=== PATIENT | female | born 1965 | race American Indian/Alaskan Native ===

== ENCOUNTER 2017-06-05 22:03 | Observation (INO) | payer BC ==
--- NOTE | 2017-06-05 22:47 | C.PDOC ---
History Of Present Illness 51 year old female presents to the ED c/o pain to her left upper back radiating to her left upper chest and arm that started 4 hours ago. Patient reports she was at the grocery store when the symptoms started. On arrival home pt states that pain left chest pain increased while climbing the stairs at her house and felt SOB. Patient denies SOB now, denies heavy lifting, trauma, injury, fall, prolonged recent travel, recent immobility due to recent illness, leg cast, no known coagulopathy state. Pt reports family h/o of heart diz- mother and 2 sisters with " valvular disease" Time Seen by Provider: 06/05/17 22:22 Chief Complaint (Nursing): Back Pain History Per: Patient History/Exam Limitations: no limitations Onset/Duration Of Symptoms: Hrs Current Symptoms Are (Timing): Still Present Previous Symptoms: Back Pain Associated Symptoms: None Recent travel outside of the [place]: No Additional History Per: Patient Past Medical History Reviewed: Historical Data, Nursing Documentation, Vital Signs Vital Signs: Last Vital Signs Temp 98.2 F 06/05/17 22:05 Pulse 84 06/05/17 22:05 Resp 14 06/05/17 22:05 BP 144/88 06/05/17 22:05 Pulse Ox 98 06/05/17 23:42 - Medical History PMH: No Chronic Diseases Surgical History: No Surg Hx Family History: States: Unknown Family Hx - Social History Hx Alcohol Use: Yes Hx Substance Use: No - Immunization History Hx Tetanus Toxoid Vaccination: No Hx Influenza Vaccination: No Hx Pneumococcal Vaccination: No Review Of Systems Constitutional: Negative for: Fever, Chills Cardiovascular: Positive for: Chest Pain. Negative for: Palpitations Respiratory: Positive for: SOB with Excertion. Negative for: Cough Gastrointestinal: Negative for: Nausea, Vomiting, Abdominal Pain Musculoskeletal: Positive for: Back Pain Skin: Negative for: Rash Neurological: Negative for: Weakness, Numbness Physical Exam - Physical Exam Appears: Non-toxic, No Acute Distress Skin: Normal Color, Warm, Dry Head: Atraumatic, Normacephalic Eye(s): bilateral: Normal Inspection Nose: No Discharge Oral Mucosa: Moist Neck: Normal ROM, Supple Chest: Symmetrical, No Tenderness Cardiovascular: Rhythm Regular, No Murmur Respiratory: Normal Breath Sounds, No Rales, No Rhonchi, No Wheezing Gastrointestinal/Abdominal: Soft, No Tenderness, No Guarding, No Rebound Back: No Paraspinal Tenderness Extremity: Normal ROM, No Tenderness, No Swelling Neurological/Psych: Oriented x3, Normal Motor, Normal Sensation Gait: Steady ED Course And Treatment - Laboratory Results Result Diagrams: 06/05/17 22:46 06/05/17 22:46 ECG: Interpreted By Me, Viewed By Me (and Dr Chavarria) ECG Rhythm: Sinus Bradycardia (57), Nonspecific Changes (inverted T waves in V4- V6) O2 Sat by Pulse Oximetry: 98 (On RA) Pulse Ox Interpretation: Normal - Radiology CXR: Interpreted by Me, Viewed By Me CXR Interpretation: Yes: No Acute Disease, Mediastinum (normal). No: Cardiomegaly Progress Note: Plan: - Labs. - EKG. - CXR. - Aspirin 81 mg PO. Labs, EKG and CXR reviewed - Physician Consult Information Physician Contacted: Harjit Choudhary Outcome Of Conversation: agreed to place pt on Tele OBS Medical Decision Making Medical Decision Makiny/o female with Left sided chest pain and back pain worse on exertion and brief episode of SOB- EKG with nonspecfic changes, Labs and CXR wnl Pt will be placed on tele obs for serial troponin Disposition - Disposition Disposition: HOSPITALIZED Disposition Time: 00:15 Condition: STABLE - Clinical Impression Clinical Impression: Chest pain due to CAD - PA / CLINICAL SERVICES MANAGER / Resident Statement MD/DO has reviewed & agrees with the documentation as recorded. - Scribe Statement The provider has reviewed the documentation as recorded by the Scribe Hung Weller All medical record entries made by the Scribe were at my direction and personally dictated by me. I have reviewed the chart and agree that the record accurately reflects my personal performance of the history, physical exam, medical decision making, and the department course for this patient. I have also personally directed, reviewed, and agree with the discharge instructions and disposition.
[2017-06-05 22:50] LABS: BASO # 0.1 K/uL (0.0-0.2); BASO % 0.9 % (0.0-2.0); EOS # 0.2 K/uL (0.0-0.7); EOS % 2.3 % (0.0-4.0); HEMOGLOBIN 11.7 g/dL (11.0-16.0); LYMPH # 2.7 K/uL (1.0-4.3); LYMPH % 34.1 % (20.0-40.0); MEAN CELL VOLUME 89.3 fL (81.0-99.0); MEAN CORPUSCULAR HEMOGLOBIN 29.2 pg (27.0-31.0); MEAN CORPUSCULAR HGB CONC 32.7 g/dL (33.0-37.0); MEAN PLATELET VOLUME 9.1 fL (7.2-11.7); MONO # 0.6 K/uL (0.0-0.8); MONO % 7.4 % (0.0-10.0); NEUT # 4.3 K/uL (1.8-7.0); NEUT % 55.3 % (50.0-75.0); RBC 4.02 Mil/uL (3.80-5.20); RED CELL DISTRIBUTION WIDTH 13.7 % (11.5-14.5); WHITE BLOOD COUNT 7.8 K/uL (4.8-10.8)
[2017-06-05 23:03] LABS: ALBUMIN 3.9 g/dL (3.5-5.0); CALCIUM 8.8 mg/dl (8.6-10.4); GFR AFRICAN-AMERICAN > 60; GFR NON-AFRICAN AMERICAN > 60
[2017-06-05 23:04] LABS: ALT/SGPT 48 U/L (9-52); AST/SGOT 47 U/L (14-36); BLOOD UREA NITROGEN 10 mg/dL (7-17)
--- NOTE | 2017-06-06 01:07 | CP.PCM.HP ---
<Andrew Craig - Last Filed: 06/06/17 03:40> History of Present Illness - History of Present Illness History of Present Illness: CC: Chest pain 51 year of female with past medical history of genital herpes presents to the ED today complaining of chest pain. Patients reports her chest pain started this afternoon around 7pm when she was grocery shopping. Patient states the pain is located at left sternal border radiates to her left arm. Patient's pain is not reproducible with upper extremity motions. No prior history of the same. Patient took 2 over the counter Aleve which alleviated her chest pain. Patient also report to have shortness of breath after climbing 2 flights of stairs to her home, but it resolved shortly after resting. Patient decided to come to the ED tonight because patient is worried that she might have experienced a heart attack. Patient denies fever, chills, diaphoresis, headache, vision changes, nausea, vomiting, or diarrhea. PMD: Dr. Danitza Alejandro PMHx: Childhood asthma, genital herpes PSHx: myomectomy 2008 Allergy: none Social Hx: social alcohol, denies tobacco or other drug use Family Hx: mother CHF and valve replacement Home meds: valacyclovir prn for herpes Present on Admission - Present on Admission Any Indicators Present on Admission: No Review of Systems - Constitutional Constitutional: As Per HPI. absent: Chills, Fatigue, Fever - EENT Eyes: As Per HPI. absent: Blind Spots, Blurred Vision, Decreased Night Vision Ears: As Per HPI Nose/Mouth/Throat: As Per HPI. absent: Epistaxis, Nasal Obstruction, Nasal Trauma - Breasts Breasts: As Per HPI - Cardiovascular Cardiovascular: As Per HPI, Chest Pain, Chest Pain at Rest, Chest Pain with Activity, Dyspnea. absent: Diaphoresis - Respiratory Respiratory: As Per HPI, Dyspnea. absent: Cough, Wheezing - Gastrointestinal Gastrointestinal: As Per HPI. absent: Abdominal Pain, Change in Bowel Habits, Diarrhea, Nausea, Vomiting - Genitourinary Genitourinary: As Per HPI. absent: Dysuria, Flank Pain - Reproductive: Female Reproductive:Female: As Per HPI - Menstruation Menstruation: As Per HPI - Musculoskeletal Musculoskeletal: As Per HPI. absent: Abnormal Gait, Joint Swelling - Integumentary Integumentary: As Per HPI. absent: Acne, Erythema - Neurological Neurological: As Per HPI. absent: Dizziness, Syncope, Tremor - Psychiatric Psychiatric: As Per HPI. absent: Anxiety, Depression - Endocrine Endocrine: As Per HPI. absent: Change in Body Appearance - Hematologic/Lymphatic Hematologic: As Per HPI Past Patient History - Past Social History Smoking Status: Never Smoked - GENITOURINARY/GYNECOLOGICAL Other/Comment: genital herpes - PSYCHIATRIC Hx Substance Use: No - SURGICAL HISTORY Other/Comment: myomectomy Meds Allergies/Adverse Reactions: Allergies Allergy/AdvReac Type Severity Reaction Status Date / Time No Known Allergies Allergy Unverified 06/05/17 22:10 Physical Exam - Constitutional Appears: Non-toxic, No Acute Distress - Head Exam Head Exam: ATRAUMATIC, NORMOCEPHALIC - Eye Exam Eye Exam: EOMI, Normal appearance Pupil Exam: NORMAL ACCOMODATION - ENT Exam ENT Exam: Mucous Membranes Moist - Neck Exam Neck exam: Positive for: Normal Inspection - Respiratory Exam Respiratory Exam: Clear to Auscultation Bilateral, NORMAL BREATHING PATTERN. absent: Rales, Rhonchi, Wheezes, Respiratory Distress - Cardiovascular Exam Cardiovascular Exam: REGULAR RHYTHM, +S1, +S2 - GI/Abdominal Exam GI & Abdominal Exam: Normal Bowel Sounds, Soft. absent: Tenderness - Rectal Exam Rectal Exam: NORMAL INSPECTION - Extremities Exam Extremities exam: Positive for: normal inspection, pedal pulses present. Negative for: tenderness - Neurological Exam Neurological exam: Alert, Oriented x3 - Psychiatric Exam Psychiatric exam: Normal Affect, Normal Mood - Skin Skin Exam: Dry, Warm Results - Vital Signs Recent Vital Signs: Last Vital Signs Temp 98.2 F 06/05/17 22:05 Pulse 84 06/05/17 22:05 Resp 14 06/05/17 22:05 BP 144/88 06/05/17 22:05 Pulse Ox 98 06/06/17 00:37 - Labs Result Diagrams: 06/05/17 22:46 06/05/17 22:46 Labs: Laboratory Results - last 24 hr 06/05/17 06/05/17 22:46 22:46 WBC 7.8 RBC 4.02 Hgb 11.7 Hct 35.9 MCV 89.3 MCH 29.2 MCHC 32.7 L RDW 13.7 Plt Count 305 MPV 9.1 Neut % (Auto) 55.3 Lymph % (Auto) 34.1 [place] % (Auto) 7.4 Eos % (Auto) 2.3 Baso % (Auto) 0.9 Neut # (Auto) 4.3 Lymph # (Auto) 2.7 [place] # (Auto) 0.6 Eos # (Auto) 0.2 Baso # (Auto) 0.1 Sodium 141 Potassium 3.6 Chloride 100 Carbon Dioxide 28 Anion Gap 16 BUN 10 Creatinine 0.7 Est GFR ( Amer) > 60 Est GFR (Non-Af Amer) > 60 Random Glucose 148 H Calcium 8.8 Total Bilirubin 0.6 AST 47 H ALT 48 Alkaline Phosphatase 84 Troponin I < 0.0120 Total Protein 7.8 Albumin 3.9 Globulin 3.9 Albumin/Globulin Ratio 1.0 Assessment & Plan - Assessment and Plan (Free Text) Assessment: Chest pain r/o ACS -EKG sinus tiffanie @57bpm, T wave inversion at V4 to V6, no previous EKG -Troponin negative, repeats pending -CXR shows no active disease, no cardiomegaly -Follow up echo, am EKG -Aspirin 81mg -Crestor 5mg Prophylactic measures -Protonix -Lovenox Case discussed with attending physician <Harjit Choudhary - Last Filed: 06/06/17 05:35> Results - Vital Signs Recent Vital Signs: Last Vital Signs Temp 97.9 F 06/06/17 02:07 Pulse 67 06/06/17 04:39 Resp 16 06/06/17 04:39 BP 104/49 L 06/06/17 02:07 Pulse Ox 95 06/06/17 04:39 - Labs Result Diagrams: 06/05/17 22:46 06/05/17 22:46 Labs: Laboratory Results - last 24 hr 06/05/17 06/05/17 22:46 22:46 WBC 7.8 RBC 4.02 Hgb 11.7 Hct 35.9 MCV 89.3 MCH 29.2 MCHC 32.7 L RDW 13.7 Plt Count 305 MPV 9.1 Neut % (Auto) 55.3 Lymph % (Auto) 34.1 [place] % (Auto) 7.4 Eos % (Auto) 2.3 Baso % (Auto) 0.9 Neut # (Auto) 4.3 Lymph # (Auto) 2.7 [place] # (Auto) 0.6 Eos # (Auto) 0.2 Baso # (Auto) 0.1 Sodium 141 Potassium 3.6 Chloride 100 Carbon Dioxide 28 Anion Gap 16 BUN 10 Creatinine 0.7 Est GFR ( Amer) > 60 Est GFR (Non-Af Amer) > 60 Random Glucose 148 H Calcium 8.8 Total Bilirubin 0.6 AST 47 H ALT 48 Alkaline Phosphatase 84 Troponin I < 0.0120 Total Protein 7.8 Albumin 3.9 Globulin 3.9 Albumin/Globulin Ratio 1.0 Assessment & Plan - Date & Time Date: 06/06/17 (I have seen and examined the patient. I agree with the findings and plan of care as documented by Dr. Craig. Patient with chest pain. ROMIx3 with EKG. 2D Echo. Aspirin and Statin. Monitor for acute changes.) Time: 05:34 Attending/Attestation - Attestation I have personally seen and examined this patient.: Yes I have fully participated in the care of the patient.: Yes I have reviewed all pertinent clinical information: Yes
[2017-06-06 05:50] LABS: BASO # 0.1 K/uL (0.0-0.2); BASO % 0.9 % (0.0-2.0); EOS # 0.2 K/uL (0.0-0.7); EOS % 2.5 % (0.0-4.0); HEMOGLOBIN 11.8 g/dL (11.0-16.0); LYMPH # 2.8 K/uL (1.0-4.3); LYMPH % 39.3 % (20.0-40.0); MEAN CELL VOLUME 89.2 fL (81.0-99.0); MEAN CORPUSCULAR HGB CONC 32.6 g/dL (33.0-37.0); MEAN PLATELET VOLUME 8.9 fL (7.2-11.7); MONO # 0.5 K/uL (0.0-0.8); MONO % 7.7 % (0.0-10.0); NEUT # 3.5 K/uL (1.8-7.0); NEUT % 49.6 % (50.0-75.0); NRBC % 0.1 % (0.0-2.0); RBC 4.05 Mil/uL (3.80-5.20); RED CELL DISTRIBUTION WIDTH 13.5 % (11.5-14.5); WHITE BLOOD COUNT 7.1 K/uL (4.8-10.8)
[2017-06-06 06:11] LABS: ALB/GLOB RATIO 1.1 (1.0-2.1); ALBUMIN 3.6 g/dL (3.5-5.0); ALT/SGPT 43 U/L (9-52); AST/SGOT 40 U/L (14-36); BLOOD UREA NITROGEN 8 mg/dL (7-17); CALCIUM 9.1 mg/dl (8.6-10.4); GFR AFRICAN-AMERICAN > 60; GFR NON-AFRICAN AMERICAN > 60
[2017-06-06 06:24] LABS: CK-MB < 0.22 ng/mL (0.0-3.38)
[2017-06-06 07:26] VITALS: O2SAT 99
--- NOTE | 2017-06-06 08:43 | RAD ---
HISTORY: chest pain COMPARISON: No prior. TECHNIQUE: Chest PA and lateral FINDINGS: LUNGS: No active pulmonary disease. PLEURA: No significant pleural effusion identified. No pneumothorax apparent. CARDIOVASCULAR: Normal. OSSEOUS STRUCTURES: No significant abnormalities. VISUALIZED UPPER ABDOMEN: Normal. OTHER FINDINGS: None. IMPRESSION: No active disease.
[2017-06-06] MEDS ORDERED: Enoxaparin 40 mg Syringe SC SCH (10:00)
[2017-06-06] MEDS ORDERED: Pantoprazole 40 mg EC Tab PO SCH (10:00)
[2017-06-06] MEDS ORDERED: Potassium Chloride 20 mEq ER Tab PO ONE (10:42)
[2017-06-06 11:47] LABS: CK-MB < 0.22 ng/mL (0.0-3.38)
[2017-06-06 14:18] VITALS: BP 133/80; PULSE 60; RESP 18; TEMP 98
--- NOTE | 2017-06-06 14:18 | CP.PCM.DIS ---
<Jason Scott - Last Filed: 06/06/17 16:50> Provider - Provider Date of Admission: 06/05/17 23:50 Attending physician: Harjit Choudhary MD Consults: none Time Spent in preparation of Discharge (in minutes): 45 Diagnosis - Discharge Diagnosis (1) Chest pain Status: Acute Hospital Course - Lab Results Lab Results: Most Recent Lab Values WBC 7.1 K/uL (4.8-10.8) 06/06/17 05:43 RBC 4.05 Mil/uL (3.80-5.20) 06/06/17 05:43 Hgb 11.8 g/dL (11.0-16.0) 06/06/17 05:43 Hct 36.1 % (34.0-47.0) 06/06/17 05:43 MCV 89.2 fL (81.0-99.0) 06/06/17 05:43 MCH 29.0 pg (27.0-31.0) 06/06/17 05:43 MCHC 32.6 g/dL (33.0-37.0) L 06/06/17 05:43 RDW 13.5 % (11.5-14.5) 06/06/17 05:43 Plt Count 294 K/uL (130-400) 06/06/17 05:43 MPV 8.9 fL (7.2-11.7) 06/06/17 05:43 Neut % (Auto) 49.6 % (50.0-75.0) L 06/06/17 05:43 Lymph % (Auto) 39.3 % (20.0-40.0) 06/06/17 05:43 [place] % (Auto) 7.7 % (0.0-10.0) 06/06/17 05:43 Eos % (Auto) 2.5 % (0.0-4.0) 06/06/17 05:43 Baso % (Auto) 0.9 % (0.0-2.0) 06/06/17 05:43 Neut # (Auto) 3.5 K/uL (1.8-7.0) 06/06/17 05:43 Lymph # (Auto) 2.8 K/uL (1.0-4.3) 06/06/17 05:43 [place] # (Auto) 0.5 K/uL (0.0-0.8) 06/06/17 05:43 Eos # (Auto) 0.2 K/uL (0.0-0.7) 06/06/17 05:43 Baso # (Auto) 0.1 K/uL (0.0-0.2) 06/06/17 05:43 Sodium 142 mmol/L (132-148) 06/06/17 05:43 Potassium 3.5 mmol/L (3.6-5.2) L 06/06/17 05:43 Chloride 103 mmol/L (98-107) 06/06/17 05:43 Carbon Dioxide 28 mmol/L (22-30) 06/06/17 05:43 Anion Gap 15 (10-20) 06/06/17 05:43 BUN 8 mg/dL (7-17) 06/06/17 05:43 Creatinine 0.7 mg/dL (0.7-1.2) 06/06/17 05:43 Est GFR ( Amer) > 60 06/06/17 05:43 Est GFR (Non-Af Amer) > 60 06/06/17 05:43 Random Glucose 107 mg/dL (65-105) H 06/06/17 05:43 Calcium 9.1 mg/dl (8.6-10.4) 06/06/17 05:43 Total Bilirubin 0.4 mg/dL (0.2-1.3) 06/06/17 05:43 AST 40 U/L (14-36) H 06/06/17 05:43 ALT 43 U/L (9-52) 06/06/17 05:43 Alkaline Phosphatase 94 U/L (38-126) 06/06/17 05:43 Total Creatine Kinase 48 U/L (30-135) 06/06/17 11:06 CK-MB (Mass) < 0.22 ng/mL (0.0-3.38) 06/06/17 11:06 Troponin I < 0.0120 ng/mL (0.00-0.120) 06/06/17 11:06 Total Protein 6.9 g/dL (6.3-8.3) 06/06/17 05:43 Albumin 3.6 g/dL (3.5-5.0) 06/06/17 05:43 Globulin 3.3 gm/dL (2.2-3.9) 06/06/17 05:43 Albumin/Globulin Ratio 1.1 (1.0-2.1) 06/06/17 05:43 - Hospital Course Hospital Course: 51 year of female with past medical history of genital herpes presents to the ED today complaining of chest pain. Patients reports her chest pain started this afternoon around 7pm when she was grocery shopping. Patient states the pain is located at left sternal border radiates to her left arm. Patient's pain is not reproducible with upper extremity motions. No prior history of the same. Patient took 2 over the counter Aleve which alleviated her chest pain. Patient also report to have shortness of breath after climbing 2 flights of stairs to her home, but it resolved shortly after resting. Patient decided to come to the ED tonight because patient is worried that she might have experienced a heart attack. Patient denies fever, chills, diaphoresis, headache, vision changes, nausea, vomiting, or diarrhea. Hospital course: patient had 3 troponins that were all negaive as well as 3 EKGs that did not show any ST changes or arryythmogenic intervals. Patient was discharged with instructions to make an appointment with Dtr. Jacobson for out patient stress test as she has a family history of early [place]. The rest of her stay was without complications. Discharge Exam - Head Exam Head Exam: ATRAUMATIC, NORMOCEPHALIC - Eye Exam Eye Exam: EOMI, Normal appearance, PERRL Pupil Exam: NORMAL ACCOMODATION, PERRL - Respiratory Exam Respiratory Exam: Clear to PA & Lateral, UNREMARKABLE - Cardiovascular Exam Cardiovascular Exam: REGULAR RHYTHM - GI/Abdominal Exam GI & Abdominal Exam: Normal Bowel Sounds - Neurological Exam Neurological exam: Alert, CN II-XII Intact, Normal Gait, Oriented x3, Reflexes Normal - Psychiatric Exam Psychiatric exam: Normal Affect, Normal Mood - Skin Skin Exam: Dry, Intact, Normal Color, Warm Discharge Plan - Discharge Medications Prescriptions: Pantoprazole [Protonix EC Tab] 40 mg PO DAILY #30 ect - Follow Up Plan Condition: STABLE Disposition: HOME/ ROUTINE Additional Instructions: 1. Please follow up with your primary care provider, Dr. Alejandro, in 7-10 days. 2. Please follow up with Dr. Jason Jacobson in his office in 7-10 days. Please call to make an appointment. I have attached his office information. 3. Please take the following medications: -Protonix 40mg by mouth daily with breakfast for 1 month 4. Please walk after meals for 15-20 minutes 5. Please do not lay down for 1-2 hours after eating. 6. Please return to the ED if symptoms return. <Jude Alejandro - Last Filed: 06/06/17 20:00> Provider - Provider Date of Admission: 06/05/17 23:50 Attending physician: Harjit Choudhary MD Time Spent in preparation of Discharge (in minutes): 40 Hospital Course - Lab Results Lab Results: Most Recent Lab Values WBC 7.1 K/uL (4.8-10.8) 06/06/17 05:43 RBC 4.05 Mil/uL (3.80-5.20) 06/06/17 05:43 Hgb 11.8 g/dL (11.0-16.0) 06/06/17 05:43 Hct 36.1 % (34.0-47.0) 06/06/17 05:43 MCV 89.2 fL (81.0-99.0) 06/06/17 05:43 MCH 29.0 pg (27.0-31.0) 06/06/17 05:43 MCHC 32.6 g/dL (33.0-37.0) L 06/06/17 05:43 RDW 13.5 % (11.5-14.5) 06/06/17 05:43 Plt Count 294 K/uL (130-400) 06/06/17 05:43 MPV 8.9 fL (7.2-11.7) 06/06/17 05:43 Neut % (Auto) 49.6 % (50.0-75.0) L 06/06/17 05:43 Lymph % (Auto) 39.3 % (20.0-40.0) 06/06/17 05:43 [place] % (Auto) 7.7 % (0.0-10.0) 06/06/17 05:43 Eos % (Auto) 2.5 % (0.0-4.0) 06/06/17 05:43 Baso % (Auto) 0.9 % (0.0-2.0) 06/06/17 05:43 Neut # (Auto) 3.5 K/uL (1.8-7.0) 06/06/17 05:43 Lymph # (Auto) 2.8 K/uL (1.0-4.3) 06/06/17 05:43 [place] # (Auto) 0.5 K/uL (0.0-0.8) 06/06/17 05:43 Eos # (Auto) 0.2 K/uL (0.0-0.7) 06/06/17 05:43 Baso # (Auto) 0.1 K/uL (0.0-0.2) 06/06/17 05:43 Sodium 142 mmol/L (132-148) 06/06/17 05:43 Potassium 3.5 mmol/L (3.6-5.2) L 06/06/17 05:43 Chloride 103 mmol/L (98-107) 06/06/17 05:43 Carbon Dioxide 28 mmol/L (22-30) 06/06/17 05:43 Anion Gap 15 (10-20) 06/06/17 05:43 BUN 8 mg/dL (7-17) 06/06/17 05:43 Creatinine 0.7 mg/dL (0.7-1.2) 06/06/17 05:43 Est GFR ( Amer) > 60 06/06/17 05:43 Est GFR (Non-Af Amer) > 60 06/06/17 05:43 Random Glucose 107 mg/dL (65-105) H 06/06/17 05:43 Calcium 9.1 mg/dl (8.6-10.4) 06/06/17 05:43 Total Bilirubin 0.4 mg/dL (0.2-1.3) 06/06/17 05:43 AST 40 U/L (14-36) H 06/06/17 05:43 ALT 43 U/L (9-52) 06/06/17 05:43 Alkaline Phosphatase 94 U/L (38-126) 06/06/17 05:43 Total Creatine Kinase 48 U/L (30-135) 06/06/17 11:06 CK-MB (Mass) < 0.22 ng/mL (0.0-3.38) 06/06/17 11:06 Troponin I < 0.0120 ng/mL (0.00-0.120) 06/06/17 11:06 Total Protein 6.9 g/dL (6.3-8.3) 06/06/17 05:43 Albumin 3.6 g/dL (3.5-5.0) 06/06/17 05:43 Globulin 3.3 gm/dL (2.2-3.9) 06/06/17 05:43 Albumin/Globulin Ratio 1.1 (1.0-2.1) 06/06/17 05:43 Attending/Attestation - Attestation I have personally seen and examined this patient.: Yes I have fully participated in the care of the patient.: Yes I have reviewed all pertinent clinical information, including history, physical exam and plan: Yes Notes (Text): 06/06/17 19:58 Patient was seen and examined in the ER BED #2 shortly after resident. Exam, assessment and plan and discharge instructions were gone over with the resident. Discharge instructions were also thoroughly gone over with the patient and she expressed understanding. Jude Alejandro D.O.
--- NOTE | 2017-06-07 01:57 | CARD ---
APPROVED REPORT EKG Measurement Heart [id number] <Conclusion> Sinus bradycardia Incomplete right bundle branch block Septal infarct, age undetermined consider lateral ischemia Abnormal ECG
--- NOTE | 2017-06-07 12:34 | CARD ---
APPROVED REPORT EKG Measurement Heart [id number] <Conclusion> Sinus bradycardia ST & T wave abnormality, consider lateral ischemia Abnormal ECG
== END 2017-06-06 14:30 | disposition home or self-care (01) ==
LOC: C.ER 22:03 → C.9E 23:50 → C.5S 06-06 10:49 → C.9E 06-06 14:12
PROVIDERS: ADMIT Family Medicine; ATTEND Family Medicine
DX: R07.9 Chest pain, unspecified (principal); I25.10 Atherosclerotic heart disease of native coronary artery without angina pectoris; Z82.49 Family history of ischemic heart disease and other diseases of the circulatory system
CPT/HCPCS: 71046; 80053; 84484; 85025; G0378; J1650